=== PATIENT | male | born 1975 | race Caucasian/White ===

== ENCOUNTER 2025-08-15 13:40 | Observation (INO) | payer OTHER, SELFPAY ==
--- NOTE | ~2025-08-15 | XR_ITS ---
EXAMINATION: XR stent kub - surgery DATE: 08/16/2025 14:32 INDICATION: Left UVJ stone. TECHNIQUE: 2 fluoroscopic images of the abdomen and pelvis were obtained during procedure performed by the previous. Radiologist was not present for the imaging or procedure. The amount of fluoroscopy time used during this procedure was 0.4 minutes. Total DAP was 0.639 mGym^2. COMPARISON: Outside institution CT dated 08/15/2025 FINDINGS: The previously seen stone at the left ureterovesicular junction with subtly evident on the bank runner image. Subsequent image demonstrates a left internal ureteral stent with proximal loop projecting over the expected location of the left kidney. IMPRESSION: 1. Fluoroscopy utilized during likely left ureteral stone extraction and left internal ureteral stent placement. See procedure note for further detail. Reviewed, dictated and finalized at location A. IMPRESSION: 1. Fluoroscopy utilized during likely left ureteral stone extraction and left i nternal ureteral stent placement. See procedure note for further detail.
[2025-08-15 13:42] VITALS: BP 138/84; PULSE 81; RESP 20; TEMP 36.8; O2SAT 99
--- NOTE | 2025-08-15 15:56 | ED_ITS ---
HPI - General Adult General Chief complaint: Abdominal Pain Stated complaint: kidney stone left side Time Seen by Provider: 08/15/25 15:30 History of Present Illness HPI narrative: 50-year-old male present to the emergency department for evaluation for left flank pain that is been ongoing for the last week and worsened over the last 2-3 days. Patient did present to [facility] and did have a UA showing some high white blood cells and patient was treated with a dose of Rocephin. Patient also had some hematuria so CT scan was ordered and did reveal a 10 mm left UVJ ureteral calculi. Patient does have prior history of kidney stones but patient's most recent procedure was about 8 years ago was done at [place]. Patient does not take any blood thinners. Patient does take a daily aspirin. Patient last had food at approximately 4:00 a.m. and has not had anything significant drink since noon. Patient states at noon he had a few sips of water. Related Data Home Medications ?Medication ?Instructions ?Recorded ?Confirmed ?Last Taken ?Type aspirin 81 mg tablet 81 mg PO DAILY 08/15/2507/0208/15/25 History atorvastatin 20 mg tablet 20 mg PO DAILY 08/15/2507/0208/15/25 History buspirone 5 mg tablet 5 mg PO TID PRN anxiety 07/0208/15/25 08/14/25 History cholecalciferol (vitamin D3) 125 125 mcg PO DAILY 07/0208/15/25 08/15/25 History mcg (5,000 unit) tablet (Vitamin D3) fluticasone propionate 50 2 spray intranasal DAILY 07/0208/15/25 08/15/25 History mcg/actuation nasal spray,suspension latanoprost 0.005 % eye drops 1 drp EACH EYE QPM 08/1508/15/25 08/14/25 History lisinopril 10 mg tablet 10 mg PO DAILY 08/15/2507/0208/15/25 History metformin 500 mg tablet,extended 1,000 mg PO BID 08/1508/15/25 08/15/25 History release 24 hr metoprolol succinate 50 mg 50 mg PO DAILY 08/15/2507/0208/14/25 History tablet,extended release 24 hr tirzepatide 5 mg/0.5 mL 5 mg subcut WEEKLY 08/15/25 08/15/25 08/14/25 History subcutaneous pen injector (Rajeev) Allergies Allergy/AdvReac Type Severity Reaction Status Date / Time No Known Allergies Allergy Verified 08/15/25 18:46 Review of Systems 2 Review of Systems: All systems reviewed & are unremarkable except as noted in HPI and below [facility] Social History Social History Smoking packs per day: 1 Smoking cigarettes per day: 20.0 Years smoked: 25 Smoking pack-years: 25.00 Smoking status: Current every day smoker Tobacco type: cigarettes Alcohol intake: current Drinks per week: 1 Substance use: never Lack of Transportation: No Lack of Food: Never True Current Housing: I Have Housing Concerned About Future Housing: No Difficulty Paying Gas/Electric Bills: No Difficulty Paying for Meds: No Currently Unemployed: No Education: Decline to Answer Difficulty w/ Childcare or Family Care: No Spiritual care concerns: No Exam 2 Narrative: APPEARANCE: Uncomfortable appearing HEAD: normocephalic, atraumatic. EYES: PERRLA/EOMI, conjunctivae clear. NOSE: Normal no drainage EARS:TMS clear with good light reflex. THROAT: Pharynx clear, no exudate. NECK: Supple. No adenopathy, no masses. RESPIRATORY: Airway patent, respirations nonlabored. Clear to auscultation bilaterally, no rales, rhonchi, wheezing. CARDIOVASCULAR: Regular rate and rhythm without murmurs rubs or gallops. ABDOMINAL: Soft, nontender, nondistended, normal bowel sounds MUSCULOSKELETAL: Moves all extremities. Strength/ROM intact, No edema, No calf tenderness. NEURO: Alert. Cranial nerves II through XII intact. Good gait. Good coordination SKIN: Warm, dry. Normal Color Course Vital Signs Vital signs: Vital Signs Temperature 98.2 F 08/15/25 13:42 Pulse Rate 81 08/15/25 13:42 Respiratory Rate 20 08/15/25 13:42 Blood Pressure 138/84 08/15/25 13:42 Pulse Oximetry 99 08/15/25 13:42 Temperature 97.5 F L 08/15/25 18:18 Pulse Rate 70 08/15/25 18:18 Respiratory Rate 18 08/15/25 18:18 Blood Pressure 118/71 08/15/25 18:18 Pulse Oximetry 99 08/15/25 18:18 Medical Decision Making [facility] Narrative Medical decision making narrative: 50-year-old male presents emergency department for evaluation for left flank pain secondary to a 10 mm left UVJ stone. Patient did have an abnormal UA at outpatient and patient was treated with 1 g of IV Rocephin. At time of evaluation emergency department patient is afebrile with no leukocytosis hemoglobin of 16.2. No significant abnormalities on his CMP with a normal creatinine. UA did have 11-20 white blood cells. Case was discussed with Urology and patient will be admitted overnight at with an anticipated stone retrieval tomorrow. Patient is made NPO after midnight. Patient did require IV Dilaudid for pain control prior to going to the floor. Patient and family were comfortable the plan for admission. Differential Diagnosis Differential Diagnosis: Ureteral calculi, urinary tract infection Vital Signs Vital Signs: Vital Signs Temperature 98.2 F 08/15/25 13:42 Pulse Rate 81 08/15/25 13:42 Respiratory Rate 20 08/15/25 13:42 Blood Pressure 138/84 08/15/25 13:42 Pulse Oximetry 99 08/15/25 13:42 Temperature 97.5 F L 08/15/25 18:18 Pulse Rate 70 08/15/25 18:18 Respiratory Rate 18 08/15/25 18:18 Blood Pressure 118/71 08/15/25 18:18 Pulse Oximetry 99 08/15/25 18:18 Lab Data 08/15/25 16:01 08/15/25 16:01 Labs: Lab Results 08/15/25 08/15/25 Range/Units 16:01 16:05 WBC 8.8 (4.5-10.0) K/mm3 RBC 5.78 (4.6-6.20) M/mm3 Hgb 16.2 (14.0-18.0) g/dL Hct 48.1 (42.0-52.0) % MCV 83.2 (80-100) fl MCH 28.0 (26-34) pg MCHC 33.7 (32-36) g/dl RDW 14.3 (11.5-14.5) % Plt Count 178 (150-375) k/mm3 MPV 10.7 H (7.4-10.4) fl Immature Gran % (Auto) 0.3 (0-0.5) % Neut % (Auto) 63.7 (45.5-73.1) % Lymph % (Auto) 27.9 (18.3-44.2) % [place] % (Auto) 6.7 (2.6-8.5) % Eos % (Auto) 0.9 (0-4.4) % Baso % (Auto) 0.5 (0.2-1.2) % Lymph # (Auto) 2.45 (0.9-3.2) K/mm3 [place] # (Auto) 0.6 (0.1-0.6) K/mm3 Eos # (Auto) 0.1 (0-0.3) K/mm3 Baso # (Auto) 0.0 (0.0-0.1) K/mm3 Abs Immat Gran (auto) 0.03 (0.00-0.031) K/mm3 Absolute Neuts (auto) 5.6 (1.3-6.7) K/mm3 Absolute Nucleated RBC 0.000 (0.0-0.012) K/mm3 Nucleated RBC % 0.0 (0.0-0.2) % Sodium 137 (137-145) mmol/L Potassium 4.0 (3.4-5.0) mmol/L Chloride 107 (98-107) mmol/L Carbon Dioxide 20 L (22-30) mmol/L Anion Gap 10 (4-12) mmol/L BUN 14 (9-20) mg/dL Creatinine 0.73 (0.7-1.3) mg/dL Estim Creat Clear Calc 138 ml/min Estimated GFR > 60 (59 - ) Glucose 96 (65-110) mg/dL Calcium 9.1 (8.4-10.2) mg/dL Total Bilirubin 0.6 (0.2-1.3) mg/dL AST 30 (17-59) U/L ALT 47 (6-50) U/L Alkaline Phosphatase 82 (38-126) U/L Total Protein 7.7 (6.3-8.2) g/dL Albumin 4.5 (3.5-5.1) g/dL Urine Color Yellow (Yellow) Urine Appearance Clear (Clear) Urine pH 5.0 (5.0-9.0) Ur Specific [place] 1.031 (1.001-1.035) Urine Protein Negative (Negative) mg/dL Urine Glucose (UA) Negative (Negative) mg/dL Urine Ketones Negative (Negative) mg/dL Ur Blood (Man) Trace (Negative) Urine Nitrate Negative (Negative) Urine Bilirubin Negative (Negative) Urine Urobilinogen 0.2 (<2.0) mg/dL Leukocyte Esterase Rfl 1+ H (Negative) NANETTE/UL Urine RBC 0-2 (0-2) /hpf Urine WBC 11-20 H (0-3) /hpf Ur Squamous Epith Cells None seen (Few) /hpf Urine Bacteria None seen /hpf Urine Casts 0-2 Discharge Plan Discharge Clinical Impression: Left ureteral calculus Patient Disposition: Still a Patient Condition: Stable
[2025-08-15 16:07] LABS: Hematocrit 48.1 % (42.0-52.0); Hemoglobin 16.2 g/dL (14.0-18.0); Immature Granulocyte Percent A 0.3 % (0-0.5); Lymphocytes Absolute Auto 2.45 K/mm3 (0.9-3.2); Mean Corpuscular HGB Conc 33.7 g/dl (32-36); Mean Corpuscular Hemoglobin 28.0 pg (26-34); Mean Corpuscular Volume 83.2 fl (80-100); Nucleated Red Blood Cells Absolute Auto 0.000 K/mm3 (0.0-0.012); Nucleated Red Blood Cells Perc 0.0 % (0.0-0.2); Platelet Count Result 178 k/mm3 (150-375); Red Blood Count 5.78 M/mm3 (4.6-6.20); White Blood Count 8.8 K/mm3 (4.5-10.0)
[2025-08-15] MEDS: ONDANSETRON INJ 4 MG/2 ML VIAL IV PUSH (16:18)
[2025-08-15] MEDS: HYDROmorphone HCL INJ (*CRX) 1 MG/ML SYR IV PUSH (16:18)
[2025-08-15 16:20] LABS: Add Urine Microscopic? YES; Appearance Urine Clear (Clear); Glucose Urine UA Negative (Negative); Leukocyte Esterase Ur 1+ LEU/UL (Negative); Nitrate Urine Negative (Negative); Non Pathogenic Casts 0-2; Specific Grav Ur 1.031 (1.001-1.035)
[2025-08-15 16:23] LABS: Alanine Aminotransferase 47 U/L (6-50); Albumin Level 4.5 g/dL (3.5-5.1); Alkaline Phosphatase 82 U/L (38-126); Anion Gap 10 mmol/L (4-12); Aspartate Amino Transferase 30 U/L (17-59); Bilirubin,Total 0.6 mg/dL (0.2-1.3); Blood Urea Nitrogen 14 mg/dL (9-20); Calcium 9.1 mg/dL (8.4-10.2); Carbon Dioxide 20 mmol/L (22-30); Chloride 107 mmol/L (98-107); Estimated CRCL calculation 138 ml/min; Estimated Glomerular Filt Rate > 60; Glucose 96 mg/dL (65-110); Potassium 4.0 mmol/L (3.4-5.0); Sodium 137 mmol/L (137-145); Total Protein 7.7 g/dL (6.3-8.2)
--- NOTE | 2025-08-15 16:42 | P.CONUR_ITS ---
Assessment and Plan Assessment and plan (1) Left ureteral calculus: Code(s): N20.1 - Calculus of ureter Status: Acute Plan 50-year-old male with uncontrolled left flank pain secondary to a 10 mm left UVJ stone - WBC and kidney function within normal limits - UA pending - admit to hospitalist for pain management - NPO after midnight - discussed risks of surgery including infection, bleeding, damage to surrounding structures, and . Discussed stent and symptoms of having a stent. Discussed follow up of stent would be approximately 1-2 weeks later Outpatient depending on scheduling.Patient reports he has had a stent previously. Patient is accompanied by his son. Patient consents to surgery. - plan for cystoscopy, left ureteroscopy, possible laser lithotripsy, left ureteral stent with Dr. Barnes U[facility] Consult Note HPI Date Seen: 08/15/25 Primary Care Provider: Watson Zhang Consult Narrative Narrative: 50-year-old male present to the emergency department for evaluation for left flank pain that is been ongoing for the last week and worsened over the last 2-3 days. Patient did present to [facility] and did have a UA showing some high white blood cells and patient was treated with a dose of Rocephin. Patient also had some hematuria so CT scan was ordered and did reveal a 10 mm left UVJ ureteral calculi. Patient does have prior history of kidney stones but patient's most recent procedure was about 8 years ago was done at [place]. Patient does not take any blood thinners. Patient does take a daily aspirin. Patient last had food at approximately 4:00 a.m. and has not had anything significant drink since noon. Patient states at noon he had a few sips of water. Review of Systems 2 Review of Systems: All systems reviewed & are unremarkable except as noted in HPI and below Meds Home Medications and Allergies Allergies Allergy/AdvReac Type Severity Reaction Status Date / Time No Known Allergies Allergy Verified 08/15/25 15:29 Vital Signs Vital Signs - 24 hr 08/15/25 13:42 Temperature 98.2 F Pulse Rate 81 Respiratory Rate 20 Blood Pressure 138/84 Pulse Oximetry 99 Exam 2 Const: General: no acute distress and uncomfortable HENMT: Mouth: Yes moist mucous membranes abnormal Eyes: General: appearance normal, both eyes and all related structures Neck: Neck: supple Resp: Effort & Inspection: normal respiratory effort Skin: General skin exam: normal color Neuro: Speech: normal speech Psych: Speech and movement: Normal speech and movement present Results Labs 08/15/25 16:01 08/15/25 16:01 Labs: Short CBC 08/15/25 Range/Units 16:01 WBC 8.8 (4.5-10.0) K/mm3 Hgb 16.2 (14.0-18.0) g/dL Hct 48.1 (42.0-52.0) % Plt Count 178 (150-375) k/mm3 BMP 08/15/25 16:01 Sodium 137 Potassium 4.0 Chloride 107 Carbon Dioxide 20 L BUN 14 Creatinine 0.73 Glucose 96 Calcium 9.1 Liver Function 08/15/25 Range/Units 16:01 Total Bilirubin 0.6 (0.2-1.3) mg/dL AST 30 (17-59) U/L ALT 47 (6-50) U/L Alkaline Phosphatase 82 (38-126) U/L Albumin 4.5 (3.5-5.1) g/dL Urine 08/15/25 Range/Units 16:05 Urine Color Yellow (Yellow) Urine Appearance Clear (Clear) Urine pH 5.0 (5.0-9.0) Ur Specific [place] 1.031 (1.001-1.035) Urine Protein Negative (Negative) mg/dL Urine Glucose (UA) Negative (Negative) mg/dL
[2025-08-15 16:53] VITALS: BP 121/72; PULSE 72; RESP 16; O2SAT 96
[2025-08-15 18:18] VITALS: BP 118/71; PULSE 70; RESP 18; TEMP 36.4; O2SAT 99; BMI 36.8
--- NOTE | 2025-08-15 18:27 | ADMGEN ---
This patient, Alvarez Duenas, was admitted to [facility] Surg Room 320-01. Patient/family oriented to hospital policies and general routines including ID bracelet, bed and alarms, visiting hours, pain management, procedures, bathroom and other care routines, personal items, smoking policy, room service/diet, and visiting hours. Information on how to activate the Rapid Response Team has been discussed. Patient/Family are encouraged to report perceived risks to care and to ask questions if they do not understand what they are told or what they should do.
--- NOTE | 2025-08-15 18:48 | P.HP_ITS ---
H&P: HPI History of Present Illness Date/Time: 08/15/25 18:48 Chief Complaint: Left flank and abdominal pain Narrative: 50-year-old male who presents the hospital with left flank and abdominal pain. Patient states that the pain has been ongoing for about a week and has gotten worse over the last 2-3 days so he presented to urgent care. Patient was started on IV Rocephin for UTI, a CT scan was done due to hematuria which showed a a 10 mm left UVJ urethral stone. Patient states that pain is well controlled medications he is taking. He is not having any trouble urinating. Patient denies fevers chills nausea or vomiting. CBC and BMP within normal limits, UA with 1+ leukocyte esterase and 11-20 wbc's, outside CT uploaded into the system. Urology has been consulted and plan for procedure tomorrow. Review of Systems Review of Systems: 12 systems were reviewed and are negativ e except for as per HPI. REPLACED BY [facility] Past Medical History Medical History (Updated 08/15/25 @ 22:16 by Amparo Ramos, RN CLINICAL COORDINATOR) Hypertension Hyperlipidemia Anxiety Diabetes Social History Social History Smoking packs per day: 1 Smoking cigarettes per day: 20.0 Years smoked: 25 Smoking pack-years: 25.00 Smoking status: Current every day smoker Tobacco type: cigarettes Alcohol intake: current Drinks per week: 1 Substance use: never Lack of Transportation: No Lack of Food: Never True Current Housing: I Have Housing Concerned About Future Housing: No Difficulty Paying Gas/Electric Bills: No Difficulty Paying for Meds: No Currently Unemployed: No Education: Decline to Answer Difficulty w/ Childcare or Family Care: No Spiritual care concerns: No Meds Home Medications and Allergies Home Medications ?Medication ?Instructions ?Recorded ?Confirmed ?Type aspirin 81 mg tablet 81 mg PO DAILY 08/15/2507/02 History atorvastatin 20 mg tablet 20 mg PO DAILY 08/15/2507/02 History buspirone 5 mg tablet 5 mg PO TID PRN anxiety 07/0208/15/25 History cholecalciferol (vitamin D3) 125 125 mcg PO DAILY 07/0208/15/25 History mcg (5,000 unit) tablet (Vitamin D3) fluticasone propionate 50 2 spray intranasal DAILY 07/0208/15/25 History mcg/actuation nasal spray,suspension latanoprost 0.005 % eye drops 1 drp EACH EYE QPM 08/1508/15/25 History lisinopril 10 mg tablet 10 mg PO DAILY 08/15/25 10/07/02 History metformin 500 mg tablet,extended 1,000 mg PO BID 08/1508/15/25 History release 24 hr metoprolol succinate 50 mg 50 mg PO DAILY 08/15/2507/02 History tablet,extended release 24 hr tirzepatide 5 mg/0.5 mL 5 mg subcut WEEKLY 08/15/25 08/15/25 History subcutaneous pen injector (Mounjaro) Allergies Allergy/AdvReac Type Severity Reaction Status Date / Time No Known Allergies Allergy Verified 08/15/25 18:46 Vital Signs Vital Signs - 24 hr 08/15/25 13:42 08/15/25 16:53 08/15/25 18:18 Temperature 98.2 F 97.5 F L Pulse Rate 81 72 70 Respiratory Rate 20 16 18 Blood Pressure 138/84 121/72 118/71 Pulse Oximetry 99 96 99 Exam Narrative: General: well appearing, appears stated age. HEENT: normocephalic, atraumatic. Mucous membranes moist. EOMI, PERRLA, bilateral sclera anicteric, no conjunctival injection. Neck supple without JVD, lymphadenopathy, or bruit. Respiratory: clear to ascultation bilaterally. No rales/rhonic/wheezes. Cardiovascular: Regular rate and rhythm, normal S1-S2 upon ascultation. No murmurs, rubs, or clicks. PMI is nondisplaced, capillary refill less than 3 second. Abdomen: Soft, round, no pulsatile masses, nondistended and nontender. No rebound, no guarding. No CVA tenderness, no hepatosplenomegaly. Bowel sounds present to all four quadrants. No high pitch or tinkling sounds, resonant to percussion. Extremities: No cyanosis, clubbing, or edema present. Pulses are palpable 2/2. Active ROM to all four extremities. Neuro: Alert and orientated x 4. PERRLA. Cranial nerves 2-12 intact without focal deficit. Skin: Warm, dry, and intact, without rash, erythema, or lesion. Psych: pleasant, cooperative, normal speech, normal affect, no hallucinations, no dysarthia H&P: Results Labs Labs: Short CBC 08/15/25 Range/Units 16:01 WBC 8.8 (4.5-10.0) K/mm3 Hgb 16.2 (14.0-18.0) g/dL Hct 48.1 (42.0-52.0) % Plt Count 178 (150-375) k/mm3 BMP 08/15/25 16:01 Sodium 137 Potassium 4.0 Chloride 107 Carbon Dioxide 20 L BUN 14 Creatinine 0.73 Glucose 96 Calcium 9.1 Liver Function 08/15/25 Range/Units 16:01 Total Bilirubin 0.6 (0.2-1.3) mg/dL AST 30 (17-59) U/L ALT 47 (6-50) U/L Alkaline Phosphatase 82 (38-126) U/L Albumin 4.5 (3.5-5.1) g/dL Urine 08/15/25 Range/Units 16:05 Urine Color Yellow (Yellow) Urine Appearance Clear (Clear) Urine pH 5.0 (5.0-9.0) Ur Specific [place] 1.031 (1.001-1.035) Urine Protein Negative (Negative) mg/dL Urine Glucose (UA) Negative (Negative) mg/dL Assessment and Plan Assessment and plan (1) Left ureteral calculus: Code(s): N20.1 - Calculus of ureter Status: Acute Assessment and Plan: Urology consulted Plan for procedure tomorrow Okay for diet now, NPO midnight IV pain medications (2) UTI (urinary tract infection): Code(s): N39.0 - Urinary tract infection, site not specified Status: Acute Assessment and Plan: IV Rocephin given at urgent care Rocephin daily Culture and sensitivity pending IVF (3) Cough: Code(s): R05.9 - Cough, unspecified Status: Acute Assessment and Plan: Patient's has COVID at home COVID, RSV, influenza A/B negative (4) Diabetes: Code(s): E11.9 - Type 2 diabetes mellitus without complications Status: Acute Assessment and Plan: Hold home diabetic medications [place] Hold home medications (5) Anxiety: Code(s): F41.9 - Anxiety disorder, unspecified Status: Acute Assessment and Plan: Continue BusPar (6) Hyperlipidemia: Code(s): E78.5 - Hyperlipidemia, unspecified Status: Acute Assessment and Plan: Continue statin (7) Hypertension: Code(s): I10 - Essential (primary) hypertension Status: Acute Assessment and Plan: Continue lisinopril Quality VTE Prophylaxis VTE prophylaxis: mechanical ordered Hospitalist MIPS Advance Care Plan I have confirmed that the patient's Advanced Care Plan is present, code status is documented, or surrogate decision maker is listed in patient medical record.: Yes Medication Reconciliation I have utilized all available resources to obtain, update and review the colton ents current medications (includes all prescriptions, OTC, herbals, cannabis, and nutritional supplements).: Yes
[2025-08-15] MEDS: SODIUM CHLORIDE 0.9% IV 1,000 ML 125 ML IV CONT (18:59)
[2025-08-15] MEDS: KETOROLAC 15 MG/ML VIAL (*BKC) IV PUSH ×2 (19:00→23:10)
[2025-08-15 19:39] LABS: Influenza A QL RT-PCR Negative (Negative); Influenza B QL RT-PCR Negative (Negative); RSV RNA, RT-PCR Negative (Negative); SARS-CoV-2 RNA PCR Negative (Negative)
[2025-08-15 20:25] VITALS: BP 117/80; PULSE 77; RESP 20; TEMP 36.3; O2SAT 99
[2025-08-15] MEDS: LATANOPROST 0.005% OP SOLN 2.5 ML BTL 1 DROP EACH EYE (23:10)
[2025-08-16] VITALS (8 sets, daily range): BP systolic 102–123; BP diastolic 64–81; PULSE 60–76; RESP 12–20; TEMP 35.5–36.7; O2SAT 95–99
[2025-08-16] MEDS: HYDROmorphone HCL INJ (*CRX) 1 MG/ML SYR 0.5 MG IV PUSH ×2 (01:00→08:46)
[2025-08-16] MEDS: ONDANSETRON INJ 4 MG/2 ML VIAL IV PUSH (01:04)
[2025-08-16] MEDS: SODIUM CHLORIDE 0.9% IV 1,000 ML 125 ML IV CONT ×2 (02:39→10:40)
[2025-08-16] MEDS: KETOROLAC 15 MG/ML VIAL (*BKC) IV PUSH (05:08)
[2025-08-16 06:08] LABS: Hematocrit 43.2 % (42.0-52.0); Hemoglobin 14.3 g/dL (14.0-18.0); Immature Granulocyte Percent A 0.3 % (0-0.5); Lymphocytes Absolute Auto 1.56 K/mm3 (0.9-3.2); Mean Corpuscular HGB Conc 33.1 g/dl (32-36); Mean Corpuscular Hemoglobin 28.2 pg (26-34); Mean Corpuscular Volume 85.2 fl (80-100); Nucleated Red Blood Cells Absolute Auto 0.000 K/mm3 (0.0-0.012); Nucleated Red Blood Cells Perc 0.0 % (0.0-0.2); Platelet Count Result 145 k/mm3 (150-375); Red Blood Count 5.07 M/mm3 (4.6-6.20); White Blood Count 7.2 K/mm3 (4.5-10.0)
--- NOTE | 2025-08-16 06:17 | WPDHPUPDATE1 ---
History and Physical Update Update Date/Time: 08/16/25 06:17 imaging reviewed and discussed with patient this morning. Will plan cystoscopy with left ureteroscopy, laser lithotripsy with stone extraction, possible retrograde pyelogram and stent placement History and Physical has been reviewed, including an updated exam of the patient. There are NO changes in the patient's condition. Risks, benefits, and alternatives have been discussed and questions answered. Patient agrees to proceed with procedure.
--- NOTE | 2025-08-16 06:22 | WPDHPUPDATE1 ---
History and Physical Update Update Date/Time: 08/16/25 06:22 History and Physical has been reviewed, including an updated exam of the patient. There are NO changes in the patient's condition. Risks, benefits, and alternatives have been discussed and questions answered. Patient agrees to proceed with procedure.
[2025-08-16 06:29] LABS: Anion Gap 6 mmol/L (4-12); Blood Urea Nitrogen 15 mg/dL (9-20); Calcium 8.3 mg/dL (8.4-10.2); Carbon Dioxide 20 mmol/L (22-30); Chloride 110 mmol/L (98-107); Estimated CRCL calculation 131 ml/min; Estimated Glomerular Filt Rate > 60; Glucose 134 mg/dL (65-110); Potassium 3.8 mmol/L (3.4-5.0); Sodium 136 mmol/L (137-145)
--- NOTE | 2025-08-16 07:11 | P.PNIM_ITS ---
Progress Note: A&P Assessment and Plan (1) Left ureteral calculus: Code(s): N20.1 - Calculus of ureter Status: Acute Assessment and Plan: * Urology consulted * Plan for cystoscopy, left ureteroscopy, possible laser lithotripsy, left ureteral stent with Dr. Barnes * NPO * IV pain medications (2) UTI (urinary tract infection): Code(s): N39.0 - Urinary tract infection, site not specified Status: Acute Assessment and Plan: * IV Rocephin given at urgent care * Rocephin daily * Culture and sensitivity pending * IVF (3) Cough: Code(s): R05.9 - Cough, unspecified Status: Acute Assessment and Plan: * Patient's has COVID at home * COVID, RSV, influenza A/B negative (4) Diabetes: Code(s): E11.9 - Type 2 diabetes mellitus without complications Status: Acute Assessment and Plan: * Hold home diabetic medications * Baljeet COTE * SSI * Hold home medications (5) Anxiety: Code(s): F41.9 - Anxiety disorder, unspecified Status: Acute Assessment and Plan: * Continue BusPar (6) Hyperlipidemia: Code(s): E78.5 - Hyperlipidemia, unspecified Status: Acute Assessment and Plan: * Continue statin (7) Hypertension: Code(s): I10 - Essential (primary) hypertension Status: Acute Assessment and Plan: * Continue lisinopril Subjective Date/time seen: 08/16/25 07:11 Interval history: 50-year-old male who presents the hospital with left flank and abdominal pain. Patient states that the pain has been ongoing for about a week and has gotten worse over the last 2-3 days so he presented to urgent care. Patient was started on IV Rocephin for UTI, a CT scan was done due to hematuria which showed a a 10 mm left UVJ urethral stone. 08/16/2025 Review of Systems Review of Systems: 12 systems were reviewed and are negativ e except for as per HPI. Exam Narrative: General: well appearing, appears stated age. HEENT: normocephalic, atraumatic. Mucous membranes moist. EOMI, PERRLA, bilateral sclera anicteric, no conjunctival injection. Neck supple without JVD, lymphadenopathy, or bruit. Respiratory: clear to auscultation bilaterally. No rales/rhonchi/wheezes. Cardiovascular: Regular rate and rhythm, normal S1-S2 upon auscultation. No murmurs, rubs, or clicks. PMI is nondisplaced, capillary refill less than 3 second. Abdomen: Soft, round, no pulsatile masses, nondistended and nontender. No rebound, no guarding. No CVA tenderness, no hepatosplenomegaly. Bowel sounds present to all four quadrants. No high pitch or tinkling sounds, resonant to percussion. Extremities: No cyanosis, clubbing, or edema present. Pulses are palpable 2/2. Active ROM to all four extremities. Neuro: Alert and orientated x 4. PERRLA. Cranial nerves 2-12 intact without focal deficit. Skin: Warm, dry, and intact, without rash, erythema, or lesion. Psych: pleasant, cooperative, normal speech, normal affect, no hallucinations, no dysarthia Objective Data Vital Signs Vital Signs: Vital Signs - 24 hr 08/15/25 13:42 08/15/25 16:53 08/15/25 18:18 Temperature 98.2 F 97.5 F L Pulse Rate 81 72 70 Respiratory Rate 20 16 18 Blood Pressure 138/84 121/72 118/71 Pulse Oximetry 99 96 99 Oxygen Delivery 08/15/25 20:00 08/15/25 20:25 08/16/25 05:05 Temperature 97.4 F L 96 F L Pulse Rate 77 60 Respiratory Rate 20 20 Blood Pressure 117/80 109/64 Pulse Oximetry 99 96 Oxygen Delivery Room Air Intake/Output Intake/Output: Intake & Output 08/13/25 08/14/25 08/15/25 08/16/25 23:59 23:59 23:59 23:59 Intake Total 1458.3 Output Total 775 Balance 683.3 Meds/Results Medications: Active Medications Generic Name Dose Route Start Last Admin Trade Name Freq PRN Reason Stop Dose Admin Aspirin 81 mg 08/16/25 09:00 Aspirin 81 Mg Enteric Tablet PO QAM [facility] Atorvastatin Calcium 20 mg 08/16/25 09:00 Atorvastatin 20 Mg Tablet PO DAILY [facility] Buspirone HCl 5 mg 08/15/25 22:15 Buspirone Hcl 5 Mg Tablet PO TID PRN Anxiety Dextrose 12.5 gm 08/15/25 19:06 Dextrose 50% 25 Gm/50 Ml Syringe IV PUSH PRN PRN Hypoglycemia Protocol Docusate Sodium 100 mg 08/16/25 09:00 Docusate Sodium 100 Mg Capsule PO BID [facility] Glucagon 1 mg 08/15/25 19:06 Glucagon For Inj 1 Mg Vial IM PRN PRN Hypoglycemia Protocol Glucose 15 gm 08/15/25 19:06 Glucose Oral Gel 15 Gm Of Glucse In 37.5 Gm Tube PO PRN PRN Hypoglycemia Protocol Hydromorphone HCl 0.5 mg 08/15/25 16:33 08/16/25 01:00 Hydromorphone Hcl Inj (*Crx) 1 Mg/Ml Syr IV PUSH 0.5 mg Q4H PRN Administration Pain Rated 7-10 Sodium Chloride 1,000 mls @ 125 mls/hr 08/15/25 18:25 08/16/25 02:39 Normal Saline Iv IV CONT 125 mls/hr .Q8H [facility] Administration Dextrose 1,000 mls @ 100 mls/hr 08/15/25 19:06 Dextrose 5% 1,000 Ml IVPB PRN PRN Hypoglycemia Protocol Insulin Aspart 2 - 5 units 08/16/25 08:00 Insulin Aspart (*Bkc) 100 Units/Ml SUB-Q TIDWM [facility] Protocol Insulin Aspart 1 - 2 units 08/15/25 21:00 08/15/25 20:37 Insulin Aspart (*Bkc) 100 Units/Ml SUB-Q Not Given HS [facility] Protocol Ketorolac Tromethamine 15 mg 08/15/25 18:25 08/16/25 05:08 Ketorolac 15 Mg/Ml Vial (*Bkc) IV PUSH 15 mg Q6HR [facility] Administration Latanoprost 1 drop 08/15/25 22:15 08/15/25 23:10 Latanoprost 0.005% Op Soln 2.5 Ml Btl EACH EYE 1 drop QHS [facility] Administration Lisinopril 10 mg 08/16/25 09:00 Lisinopril 10 Mg Tablet PO DAILY [facility] Metoprolol Succinate 50 mg 08/16/25 09:00 Metoprolol Succinate Ext Rel 50 Mg Tabcr PO DAILY [facility] Ondansetron HCl 4 mg 08/15/25 16:33 08/16/25 01:04 Ondansetron Inj 4 Mg/2 Ml Vial IV PUSH 4 mg Q4H PRN Administration Nausea Labs Labs: Laboratory Results - last 24 hr 08/15/25 08/15/25 08/15/25 16:01 16:05 18:54 WBC 8.8 RBC 5.78 Hgb 16.2 Hct 48.1 MCV 83.2 MCH 28.0 MCHC 33.7 RDW 14.3 Plt Count 178 MPV 10.7 H Immature Gran % (Auto) 0.3 Neut % (Auto) 63.7 Lymph % (Auto) 27.9 [place] % (Auto) 6.7 Eos % (Auto) 0.9 Baso % (Auto) 0.5 Lymph # (Auto) 2.45 [place] # (Auto) 0.6 Eos # (Auto) 0.1 Baso # (Auto) 0.0 Abs Immat Gran (auto) 0.03 Absolute Neuts (auto) 5.6 Absolute Nucleated RBC 0.000 Nucleated RBC % 0.0 Sodium 137 Potassium 4.0 Chloride 107 Carbon Dioxide 20 L Anion Gap 10 BUN 14 Creatinine 0.73 Estim Creat Clear Calc 138 Estimated GFR > 60 Glucose 96 POC Capillary Glucose Calcium 9.1 Total Bilirubin 0.6 AST 30 ALT 47 Alkaline Phosphatase 82 Total Protein 7.7 Albumin 4.5 Urine Color Yellow Urine Appearance Clear Urine pH 5.0 Ur Specific [place] 1.031 Urine Protein Negative Urine Glucose (UA) Negative Urine Ketones Negative Ur Blood (Man) Trace Urine Nitrate Negative Urine Bilirubin Negative Urine Urobilinogen 0.2 Leukocyte Esterase Rfl 1+ H Urine RBC 0-2 Urine WBC 11-20 H Ur Squamous Epith Cells None seen Urine Bacteria None seen Urine Casts 0-2 Influenza A (RT-PCR) Negative Influenza B (RT-PCR) Negative RSV (RT-PCR) Negative SARS-CoV-2 RNA (RT-PCR) Negative 08/15/25 08/16/25 20:23 05:46 WBC 7.2 RBC 5.07 Hgb 14.3 Hct 43.2 MCV 85.2 MCH 28.2 MCHC 33.1 RDW 14.3 Plt Count 145 L MPV 11.0 H Immature Gran % (Auto) 0.3 Neut % (Auto) 70.4 Lymph % (Auto) 21.6 [place] % (Auto) 6.4 Eos % (Auto) 1.0 Baso % (Auto) 0.3 Lymph # (Auto) 1.56 [place] # (Auto) 0.5 Eos # (Auto) 0.1 Baso # (Auto) 0.0 Abs Immat Gran (auto) 0.02 Absolute Neuts (auto) 5.1 Absolute Nucleated RBC 0.000 Nucleated RBC % 0.0 Sodium 136 L Potassium 3.8 Chloride 110 H Carbon Dioxide 20 L Anion Gap 6 BUN 15 Creatinine 0.77 Estim Creat Clear Calc 131 Estimated GFR > 60 Glucose 134 H POC Capillary Glucose 173 H Calcium 8.3 L Total Bilirubin AST ALT Alkaline Phosphatase Total Protein Albumin Urine Color Urine Appearance Urine pH Ur Specific [place] Urine Protein Urine Glucose (UA) Urine Ketones Ur Blood (Man) Urine Nitrate Urine Bilirubin Urine Urobilinogen Leukocyte Esterase Rfl Urine RBC Urine WBC Ur Squamous Epith Cells Urine Bacteria Urine Casts Influenza A (RT-PCR) Influenza B (RT-PCR) RSV (RT-PCR) SARS-CoV-2 RNA (RT-PCR) Quality VTE Prophylaxis VTE prophylaxis: mechanical ordered
[2025-08-16] MEDS: METOPROLOL SUCCINATE EXT REL 50 MG TABCR PO (08:46)
--- NOTE | 2025-08-16 13:26 | WPDANESEPPF ---
Anes - Initial Pre Proc Eval Procedure: Operation Date: 08/16/25 14:15 Proposed Procedures p Cystoscopy, Left Ureteroscopy, Possible Left Retrograde Pyelogram, Possible Left Stone Extraction, Possible Left Stent Stent Placement, Holmium Laser Procedure - Efe Barnes MD Date/Time: 08/16/25 13:26 Surgeon: Merrill Rodriguez MD Pre Op Diagnosis: Left UVJ Ureteral Calvuli Patient Data Age: 50 Gender: M Height: 1.8 m Weight: 119.7 kg Last Vital Signs Temp 35.5 C L 08/16/25 05:05 Pulse 60 08/16/25 08:46 Resp 20 08/16/25 05:05 BP 109/64 08/16/25 05:05 Pulse Ox 96 08/16/25 05:05 O2 Del Method Room Air 08/15/25 20:00 Allergies Allergy/AdvReac Type Severity Reaction Status Date / Time No Known Allergies Allergy Verified 08/16/25 13:20 Home Medications ?Medication ?Instructions ?Recorded ?Confirmed ?Type aspirin 81 mg tablet 81 mg PO DAILY 08/15/25 08/15/25 History atorvastatin 20 mg tablet 20 mg PO DAILY 08/15/25 08/15/25 History buspirone 5 mg tablet 5 mg PO TID PRN anxiety 08/15/25 08/15/25 History cholecalciferol (vitamin D3) 125 125 mcg PO DAILY 08/15/25 08/15/25 History mcg (5,000 unit) tablet (Vitamin D3) fluticasone propionate 50 2 spray intranasal DAILY 08/15/25 08/15/25 History mcg/actuation nasal spray,suspension latanoprost 0.005 % eye drops 1 drp EACH EYE QPM 08/15/25 08/15/25 History lisinopril 10 mg tablet 10 mg PO DAILY 08/15/25 08/15/25 History metformin 500 mg tablet,extended 1,000 mg PO BID 08/15/25 08/15/25 History release 24 hr metoprolol succinate 50 mg 50 mg PO DAILY 08/15/25 08/15/25 History tablet,extended release 24 hr tirzepatide 5 mg/0.5 mL 5 mg subcut WEEKLY 08/15/25 08/15/25 History subcutaneous pen injector (Tadun[place]) Laboratory Tests 08/15/25 08/15/2508/15/25 16:01 16:05 18:54 WBC 8.8 K/mm3 (4.5-10.0) RBC 5.78 M/mm3 (4.6-6.20) Hgb 16.2 g/dL (14.0-18.0) Hct 48.1 % (42.0-52.0) MCV 83.2 fl (80-100) MCH 28.0 pg (26-34) MCHC 33.7 g/dl (32-36) RDW 14.3 % (11.5-14.5) Plt Count 178 k/mm3 (150-375) MPV 10.7 H fl (7.4-10.4) Immature Gran % (Auto) 0.3 % (0-0.5) Neut % (Auto) 63.7 % (45.5-73.1) Lymph % (Auto) 27.9 % (18.3-44.2) [place] % (Auto) 6.7 % (2.6-8.5) Eos % (Auto) 0.9 % (0-4.4) Baso % (Auto) 0.5 % (0.2-1.2) Lymph # (Auto) 2.45 K/mm3 (0.9-3.2) [place] # (Auto) 0.6 K/mm3 (0.1-0.6) Eos # (Auto) 0.1 K/mm3 (0-0.3) Baso # (Auto) 0.0 K/mm3 (0.0-0.1) Abs Immat Gran (auto) 0.03 K/mm3 (0.00-0.031) Absolute Neuts (auto) 5.6 K/mm3 (1.3-6.7) Absolute Nucleated RBC 0.000 K/mm3 (0.0-0.012) Nucleated RBC % 0.0 % (0.0-0.2) Sodium 137 mmol/L (137-145) Potassium 4.0 mmol/L (3.4-5.0) Chloride 107 mmol/L (98-107) Carbon Dioxide 20 L mmol/L (22-30) Anion Gap 10 mmol/L (4-12) BUN 14 mg/dL (9-20) Creatinine 0.73 mg/dL (0.7-1.3) Estim Creat Clear Calc 138 ml/min Estimated GFR > 60 (59 - ) Glucose 96 mg/dL (65-110) POC Capillary Glucose Calcium 9.1 mg/dL (8.4-10.2) Total Bilirubin 0.6 mg/dL (0.2-1.3) AST 30 U/L (17-59) ALT 47 U/L (6-50) Alkaline Phosphatase 82 U/L (38-126) Total Protein 7.7 g/dL (6.3-8.2) Albumin 4.5 g/dL (3.5-5.1) Urine Color Yellow (Yellow) Urine Appearance Clear (Clear) Urine pH 5.0 (5.0-9.0) Ur Specific [place] 1.031 (1.001-1.035) Urine Protein Negative mg/dL (Negative) Urine Glucose (UA) Negative mg/dL (Negative) Urine Ketones Negative mg/dL (Negative) Ur Blood (Man) Trace (Negative) Urine Nitrate Negative (Negative) Urine Bilirubin Negative (Negative) Urine Urobilinogen 0.2 mg/dL (<2.0) Leukocyte Esterase Rfl 1+ H NANETTE/UL (Negative) Urine RBC 0-2 /hpf (0-2) Urine WBC 11-20 H /hpf (0-3) Ur Squamous Epith Cells None seen /hpf (Few) Urine Bacteria None seen /hpf Urine Casts 0-2 Influenza A (RT-PCR) Negative (Negative) Influenza B (RT-PCR) Negative (Negative) RSV (RT-PCR) Negative (Negative) SARS-CoV-2 RNA (RT-PCR) Negative (Negative) 08/15/25 08/16/25 08/16/25 20:23 05:46 07:19 WBC 7.2 K/mm3 (4.5-10.0) RBC 5.07 M/mm3 (4.6-6.20) Hgb 14.3 g/dL (14.0-18.0) Hct 43.2 % (42.0-52.0) MCV 85.2 fl (80-100) MCH 28.2 pg (26-34) MCHC 33.1 g/dl (32-36) RDW 14.3 % (11.5-14.5) Plt Count 145 L k/mm3 (150-375) MPV 11.0 H fl (7.4-10.4) Immature Gran % (Auto) 0.3 % (0-0.5) Neut % (Auto) 70.4 % (45.5-73.1) Lymph % (Auto) 21.6 % (18.3-44.2) [place] % (Auto) 6.4 % (2.6-8.5) Eos % (Auto) 1.0 % (0-4.4) Baso % (Auto) 0.3 % (0.2-1.2) Lymph # (Auto) 1.56 K/mm3 (0.9-3.2) [place] # (Auto) 0.5 K/mm3 (0.1-0.6) Eos # (Auto) 0.1 K/mm3 (0-0.3) Baso # (Auto) 0.0 K/mm3 (0.0-0.1) Abs Immat Gran (auto) 0.02 K/mm3 (0.00-0.031) Absolute Neuts (auto) 5.1 K/mm3 (1.3-6.7) Absolute Nucleated RBC 0.000 K/mm3 (0.0-0.012) Nucleated RBC % 0.0 % (0.0-0.2) Sodium 136 L mmol/L (137-145) Potassium 3.8 mmol/L (3.4-5.0) Chloride 110 H mmol/L (98-107) Carbon Dioxide 20 L mmol/L (22-30) Anion Gap 6 mmol/L (4-12) BUN 15 mg/dL (9-20) Creatinine 0.77 mg/dL (0.7-1.3) Estim Creat Clear Calc 131 ml/min Estimated GFR > 60 (59 - ) Glucose 134 H mg/dL (65-110) POC Capillary Glucose 173 H mg/dl 126 H mg/dl (65-105) (65-105) Calcium 8.3 L mg/dL (8.4-10.2) Total Bilirubin AST ALT Alkaline Phosphatase Total Protein Albumin Urine Color Urine Appearance Urine pH Ur Specific [place] Urine Protein Urine Glucose (UA) Urine Ketones Ur Blood (Man) Urine Nitrate Urine Bilirubin Urine Urobilinogen Leukocyte Esterase Rfl Urine RBC Urine WBC Ur Squamous Epith Cells Urine Bacteria Urine Casts Influenza A (RT-PCR) Influenza B (RT-PCR) RSV (RT-PCR) SARS-CoV-2 RNA (RT-PCR) 08/16/25 08/16/25 11:34 13:13 WBC RBC Hgb Hct MCV MCH MCHC RDW Plt Count MPV Immature Gran % (Auto) Neut % (Auto) Lymph % (Auto) [place] % (Auto) Eos % (Auto) Baso % (Auto) Lymph # (Auto) [place] # (Auto) Eos # (Auto) Baso # (Auto) Abs Immat Gran (auto) Absolute Neuts (auto) Absolute Nucleated RBC Nucleated RBC % Sodium Potassium Chloride Carbon Dioxide Anion Gap BUN Creatinine Estim Creat Clear Calc Estimated GFR Glucose POC Capillary Glucose 99 mg/dl 90 mg/dl (65-105) (65-105) Calcium Total Bilirubin AST ALT Alkaline Phosphatase Total Protein Albumin Urine Color Urine Appearance Urine pH Ur Specific [place] Urine Protein Urine Glucose (UA) Urine Ketones Ur Blood (Man) Urine Nitrate Urine Bilirubin Urine Urobilinogen Leukocyte Esterase Rfl Urine RBC Urine WBC Ur Squamous Epith Cells Urine Bacteria Urine Casts Influenza A (RT-PCR) Influenza B (RT-PCR) RSV (RT-PCR) SARS-CoV-2 RNA (RT-PCR) Patient hx anesthesia problems: none Family hx anesthesia problems: none Results Review: All pre-operative results and documents have been reviewed as part of the pre-operative evaluation. [facility] Past Medical History Medical History (Updated 08/15/25 @ 22:16 by Amparo Ramos, USER INTERFACE ENGINEER) Hypertension Hyperlipidemia Anxiety Diabetes Social History Social History Smoking packs per day: 1 Smoking cigarettes per day: 20.0 Years smoked: 25 Smoking pack-years: 25.00 Smoking status: Current every day smoker Tobacco type: cigarettes Alcohol intake: current Drinks per week: 1 Substance use: never Lack of Transportation: No Lack of Food: Never True Current Housing: I Have Housing Concerned About Future Housing: No Difficulty Paying Gas/Electric Bills: No Difficulty Paying for Meds: No Currently Unemployed: No Education: Decline to Answer Difficulty w/ Childcare or Family Care: No Spiritual care concerns: No Anes - Eval Final PreProcedure Day of Procedure 08/16/25 13:26 Patient weight: obese Heart: regular rate and rhythm Lungs: clear to auscultation Airway: Mallampati scale class II Neurological: alert and oriented Last oral intake: >/= 8 hours ASA classification: III Emergent: no Anesthetic plan: proceed Anesthesia type and monitoring: general LMA and standard monitoring Results Review: All pre-operative results and documents have been reviewed as part of the pre-operative evaluation. Informed Consent: The patient's anesthetic plan and its attendant risks and benefits were discussed with the patient/family/POA. Questions were solicited and answers provided to the satisfaction of the patient/family/POA.
[2025-08-16] MEDS: LACTATED RINGERS 1,000 ML 30 ML IV CONT (13:42)
--- NOTE | 2025-08-16 14:28 | S_PTH ---
PATIENT: Alvarez Duenas LOC: [id number] U#:[id number] AGE/SX: 50/M ROOM: 320 RE08/15/[address]: Landen Corea PA-C : 1975 BED: 01 DIS: 08/16/2025 SPEC #: [id number] RECD: 08/17/25 07:22 STATUS: LUKAS REIzabella #: [id number] OMER: 08/16/25 14:[address]: Efe Barnes DEPT: [facility] Surgical RECD BY: Coleen Murphy ENTERED: 08/17/25 07:22 SP TYPE: Surgical OTHR DR: MD Landen Couch PA-C Etai Goldenberg, MD Tissues: A - Stone Procedures: Gross Exam Level 1 Crystalline Analysis
--- NOTE | 2025-08-16 14:32 | W.PM.PROC2 ---
Procedure Note - Detailed Date of Procedure 08/16/25 Pre-op Diagnosis Left distal ureteral calculus Post-op Diagnosis Same Procedure Performed cystoscopy, left ureteroscopy with laser lithotripsy, stone extraction and left ureteral stent placement Surgeon Efe Barnes MD Anesthesia General Description of Procedure patient is brought to the operative suite was prepped draped in routine sterile fashion while in dorsal lithotomy position after the uneventful induction of a general LMA anesthetic. Cystoscopy was undertaken with a 19 F rigid cystoscope. He has moderate lateral lobe hyperplasia with a 2 cm prostatic urethra and no median lobe enlargement. The bladder is slightly trabeculated. There was no mucosal hyperemia or jose neoplasm. There is no intravesical foreign body. He does have heaping of the left intramural ureter consistent with his large distal stone. 0.035 in glidewire was advanced in the left renal pelvis and the distal ureter was dilated an 8 F 10 F dilator. Ureteroscopy was undertaken with a short tapered semi-rigid ureteral scope. The large stone is fractured into multiple small pieces using a 200 micron Marino fiber. All fragments were extracted with a 1.9 F disposable stone basket because of the extent of this procedure in notable ureteral edema I did place a 4.8 F variable length stent with the proximal coil in the renal pelvis distal coil in the bladder. Scopes wires removed and he was taken recovery room good condition. Urine Output 775 Drains Yes Packing No Pathology Yes Complications No immediate complications Condition Stable
--- NOTE | 2025-08-16 15:47 | P.DS_ITS ---
DS: Admitting Diagnosis Discharge Date 08/16/2025 Admitting Diagnosis Left ureteral calculus DS: Discharge Diagnosis Discharge Diagnosis (1) Left ureteral calculus: Code(s): N20.1 - Calculus of ureter Status: Acute Assessment and Plan: * Urology consulted * Plan for cystoscopy, left ureteroscopy, possible laser lithotripsy, left ureteral stent with Dr. Barnes * NPO * IV pain medications (2) UTI (urinary tract infection): Code(s): N39.0 - Urinary tract infection, site not specified Status: Acute Assessment and Plan: * IV Rocephin given at urgent care * Rocephin daily * Culture and sensitivity pending * IVF (3) Cough: Code(s): R05.9 - Cough, unspecified Status: Acute Assessment and Plan: * Patient's has COVID at home * COVID, RSV, influenza A/B negative (4) Diabetes: Code(s): E11.9 - Type 2 diabetes mellitus without complications Status: Acute Assessment and Plan: * Hold home diabetic medications * Baljeet CTOE * SSI * Hold home medications (5) Anxiety: Code(s): F41.9 - Anxiety disorder, unspecified Status: Acute Assessment and Plan: * Continue BusPar (6) Hyperlipidemia: Code(s): E78.5 - Hyperlipidemia, unspecified Status: Acute Assessment and Plan: * Continue statin (7) Hypertension: Code(s): I10 - Essential (primary) hypertension Status: Acute Assessment and Plan: * Continue lisinopril DS: Summary Hospital Course Reason for hospitalization: Left flank and abdominal pain Hospital Course: Per HPI: 50-year-old male who presents the hospital with left flank and abdominal pain. Patient states that the pain has been ongoing for about a week and has gotten worse over the last 2-3 days so he presented to urgent care. Patient was started on IV Rocephin for UTI, a CT scan was done due to hematuria which showed a a 10 mm left UVJ urethral stone. Patient states that pain is well controlled medications he is taking. He is not having any trouble urinating. Patient denies fevers chills nausea or vomiting. CBC and BMP within normal limits, UA with 1+ leukocyte esterase and 11-20 wbc's, outside CT uploaded into the system. Urology has been consulted and plan for procedure tomorrow. Urology consulted and discussed risks of surgery, stent placement symptoms of having a stent. Patient is amenable to cystoscopy with left ureteroscopy with possible laser lithotripsy, left ureteral stent placement. Patient able to undergo this procedure on 08/16. Per operative note: He does have heaping of the left intramural ureter consistent with his large distal stone. 0.035 in glidewire was advanced in the left renal pelvis and the distal ureter was dilated an 8 F 10 F dilator. Ureteroscopy was undertaken with a short tapered semi-rigid ureteral scope. The large stone is fractured into multiple small pieces using a 200 micron Marino fiber. All fragments were extracted with a 1.9 F disposable stone basket because of the extent of this procedure in notable ureteral edema I did place a 4.8 F variable length stent with the proximal coil in the renal pelvis distal coil in the bladder. Patient tolerated the procedure well. Repeat vital signs were within normal limits and patient was amenable to being discharged home at this time. Plan for follow-up in the outpatient setting with Urology in 1-2 weeks for possible stent placement removal. Status at Discharge Functional status at discharge: independent ambulation Overall status at discharge: patient is back to baseline Time Spent with Patient Time attestation: Total time spent providing and/or coordinating discharge services: 21 Exam Narrative: General: well appearing, appears stated age. HEENT: normocephalic, atraumatic. Mucous membranes moist. EOMI, PERRLA, bilateral sclera anicteric, no conjunctival injection. Neck supple without JVD, lymphadenopathy, or bruit. Respiratory: clear to auscultation bilaterally. No rales/rhonchi/wheezes. Cardiovascular: Regular rate and rhythm, normal S1-S2 upon auscultation. No murmurs, rubs, or clicks. PMI is nondisplaced, capillary refill less than 3 second. Abdomen: Soft, round, no pulsatile masses, nondistended and nontender. No rebound, no guarding. No CVA tenderness, no hepatosplenomegaly. Bowel sounds present to all four quadrants. No high pitch or tinkling sounds, resonant to percussion. Extremities: No cyanosis, clubbing, or edema present. Pulses are palpable 2/2. Active ROM to all four extremities. Neuro: Alert and orientated x 4. PERRLA. Cranial nerves 2-12 intact without focal deficit. Skin: Warm, dry, and intact, without rash, erythema, or lesion. Psych: pleasant, cooperative, normal speech, normal affect, no hallucinations, no dysarthia DS: Data Data Completed and Pending Pending studies at discharge: Pending at discharge 08/16/25 14:28 Surgical [PTH] Routine Labs on day of discharge: Labs from last 24 hours 08/16/25 08/16/25 08/16/25 14:37 13:13 11:34 WBC RBC Hgb Hct MCV MCH MCHC RDW Plt Count MPV Immature Gran % (Auto) Neut % (Auto) Lymph % (Auto) [place] % (Auto) Eos % (Auto) Baso % (Auto) Lymph # (Auto) [place] # (Auto) Eos # (Auto) Baso # (Auto) Abs Immat Gran (auto) Absolute Neuts (auto) Absolute Nucleated RBC Nucleated RBC % Sodium Potassium Chloride Carbon Dioxide Anion Gap BUN Creatinine Estim Creat Clear Calc Estimated GFR Glucose POC Capillary Glucose 97 90 99 Calcium Total Bilirubin AST ALT Alkaline Phosphatase Total Protein Albumin Urine Color Urine Appearance Urine pH Ur Specific [place] Urine Protein Urine Glucose (UA) Urine Ketones Ur Blood (Man) Urine Nitrate Urine Bilirubin Urine Urobilinogen Leukocyte Esterase Rfl Urine RBC Urine WBC Ur Squamous Epith Cells Urine Bacteria Urine Casts Influenza A (RT-PCR) Influenza B (RT-PCR) RSV (RT-PCR) SARS-CoV-2 RNA (RT-PCR) 08/16/25 08/16/25 08/15/25 07:19 05:46 20:23 WBC 7.2 RBC 5.07 Hgb 14.3 Hct 43.2 MCV 85.2 MCH 28.2 MCHC 33.1 RDW 14.3 Plt Count 145 L MPV 11.0 H Immature Gran % (Auto) 0.3 Neut % (Auto) 70.4 Lymph % (Auto) 21.6 [place] % (Auto) 6.4 Eos % (Auto) 1.0 Baso % (Auto) 0.3 Lymph # (Auto) 1.56 [place] # (Auto) 0.5 Eos # (Auto) 0.1 Baso # (Auto) 0.0 Abs Immat Gran (auto) 0.02 Absolute Neuts (auto) 5.1 Absolute Nucleated RBC 0.000 Nucleated RBC % 0.0 Sodium 136 L Potassium 3.8 Chloride 110 H Carbon Dioxide 20 L Anion Gap 6 BUN 15 Creatinine 0.77 Estim Creat Clear Calc 131 Estimated GFR > 60 Glucose 134 H POC Capillary Glucose 126 H 173 H Calcium 8.3 L Total Bilirubin AST ALT Alkaline Phosphatase Total Protein Albumin Urine Color Urine Appearance Urine pH Ur Specific [place] Urine Protein Urine Glucose (UA) Urine Ketones Ur Blood (Man) Urine Nitrate Urine Bilirubin Urine Urobilinogen Leukocyte Esterase Rfl Urine RBC Urine WBC Ur Squamous Epith Cells Urine Bacteria Urine Casts Influenza A (RT-PCR) Influenza B (RT-PCR) RSV (RT-PCR) SARS-CoV-2 RNA (RT-PCR) 08/15/25 08/15/25 08/15/25 18:54 16:05 16:01 WBC 8.8 RBC 5.78 Hgb 16.2 Hct 48.1 MCV 83.2 MCH 28.0 MCHC 33.7 RDW 14.3 Plt Count 178 MPV 10.7 H Immature Gran % (Auto) 0.3 Neut % (Auto) 63.7 Lymph % (Auto) 27.9 [place] % (Auto) 6.7 Eos % (Auto) 0.9 Baso % (Auto) 0.5 Lymph # (Auto) 2.45 [place] # (Auto) 0.6 Eos # (Auto) 0.1 Baso # (Auto) 0.0 Abs Immat Gran (auto) 0.03 Absolute Neuts (auto) 5.6 Absolute Nucleated RBC 0.000 Nucleated RBC % 0.0 Sodium 137 Potassium 4.0 Chloride 107 Carbon Dioxide 20 L Anion Gap 10 BUN 14 Creatinine 0.73 Estim Creat Clear Calc 138 Estimated GFR > 60 Glucose 96 POC Capillary Glucose Calcium 9.1 Total Bilirubin 0.6 AST 30 ALT 47 Alkaline Phosphatase 82 Total Protein 7.7 Albumin 4.5 Urine Color Yellow Urine Appearance Clear Urine pH 5.0 Ur Specific [place] 1.031 Urine Protein Negative Urine Glucose (UA) Negative Urine Ketones Negative Ur Blood (Man) Trace Urine Nitrate Negative Urine Bilirubin Negative Urine Urobilinogen 0.2 Leukocyte Esterase Rfl 1+ H Urine RBC 0-2 Urine WBC 11-20 H Ur Squamous Epith Cells None seen Urine Bacteria None seen Urine Casts 0-2 Influenza A (RT-PCR) Negative Influenza B (RT-PCR) Negative RSV (RT-PCR) Negative SARS-CoV-2 RNA (RT-PCR) Negative Discharge Plan Discharge Attending physician on discharge: Merrill Rodriguez Consulting providers: Landen Corea; Loar Santiago Discharging Clinician: Efe Barnes Patient Disposition: Home Activity: other - see discharge instructions Diet: other - see discharge instructions Wound Care Instructions: other - see discharge instructions Discharge Instructions: 1) Activity: no driving or important decisions x24 hours. 2) Diet: resume your normal, pre-admission diet. 3) Follow-up: 7-14 days for stent removal / call for appointment ([phone]). Patient Instructions: Antibiotic Form Patient Language: Maori Stand Alone Forms: General Discharge Information Follow-up/Referrals: Efe Barnes MD [Physician, Urology] Discharge Medications: New hydrocodone-acetaminophen 5-325 mg tablet 1 - 2 tablet PO Q6H PRN (Reason: pain) Qty: 20 0RF Continued atorvastatin 20 mg tablet 20 mg PO DAILY buspirone 5 mg tablet 5 mg PO TID PRN (Reason: anxiety) fluticasone propionate 50 mcg/actuation spray,suspension 2 spray INTRANASAL DAILY latanoprost 0.005 % drops 1 drp EACH EYE QPM metformin 500 mg tablet extended release 24 hr 1,000 mg PO BID metoprolol succinate 50 mg tablet extended release 24 hr 50 mg PO DAILY Mounjaro 5 mg/0.5 mL pen injector 5 mg SUBCUT WEEKLY Patient Comments: takes on Tuesdays lisinopril 10 mg tablet 10 mg PO DAILY cholecalciferol (vitamin D3) [Vitamin D3] 125 mcg (5,000 unit) tablet 125 mcg PO DAILY Held aspirin 81 mg tablet 81 mg PO DAILY Hold Instructions: Resume on 08/17/25. Date of admission: 08/15/25 16:33 Primary Care Provider: Vicente,Watson Hathaway Admitting Provider: Merrill Rodriguez Attending physician on admission: Merrill Rodriguez Condition: Stable Quality VTE Prophylaxis VTE prophylaxis: mechanical ordered
== END 2025-08-16 16:30 | disposition home or self-care (01) ==
LOC: ANHED 16:16 → ANH3MEDSUR 17:18
PROVIDERS: Nurse Practitioner Gerontology; Urology; Admitting Provider Family Medicine; Emergency Provider Emergency Medicine; Visit Provider Physician Assistant
PROC: (CPT 52352; principal; 2025-08-16 14:15)
DX: N20.1 Calculus of ureter (principal); N39.0 Urinary tract infection, site not specified; E11.9 Type 2 diabetes mellitus without complications; F41.9 Anxiety disorder, unspecified; E78.5 Hyperlipidemia, unspecified; I10 Essential (primary) hypertension; Z87.442 Personal history of urinary calculi; Z20.822 Contact with and (suspected) exposure to COVID-19; R05.9 Cough, unspecified; E66.9 Obesity, unspecified; Z68.36 Body mass index [BMI] 36.0-36.9, adult; F17.210 Nicotine dependence, cigarettes, uncomplicated; Z79.82 Long term (current) use of aspirin; Z79.51 Long term (current) use of inhaled steroids; Z79.84 Long term (current) use of oral hypoglycemic drugs; Z79.85 Long-term (current) use of injectable non-insulin antidiabetic drugs
CPT/HCPCS: 52356; S2070; 36415; 80048; 80053; 81001; 82365; 82948; 85025; 87086; 87637; 88300; 96361; 96374; 96375; 96376; 99285; J0690; A9270; C1769; C2617; G0378; J1171; J1885; J2003; J2250; J2405; J2704; J3010; J7030; J7120